=== PATIENT | female | born 1985 | race Caucasian/White ===

== ENCOUNTER 2017-03-04 15:44 | Emergency (ER) | payer SELFPAY ==
[2017-03-04 16:52] VITALS: BP 114/70
[2017-03-04 17:28] LABS: Basophils % (Auto) 0.1 % (0.0-1.8); Hematocrit 41.2 % (30.3-42.9); Hemoglobin 13.9 gm/dl (10.1-14.3); Mean Corpuscular HGB Conc 34 % (30-34); Mean Corpuscular Hemoglobin 30 pg (28-32); Mean Corpuscular Volume 90 fl (79-97); Platelet Count 266 K/mm3 (140-440); Red Cell Distribution Width 13.7 % (13.2-15.2); White Blood Count 15.2 K/mm3 (4.5-11.0)
[2017-03-04 17:41] LABS: Alanine Aminotransferase 14 units/L (7-56); Albumin 4.6 g/dL (3.9-5); Albumin/Globulin Ratio 1.7 %; Alkaline Phosphatase 60 units/L (35-129); Anion Gap 20 mmol/L; Blood Urea Nitrogen 9 mg/dL (7-17); Calcium 9.2 mg/dL (8.4-10.2); Carbon Dioxide 19 mmol/L (22-30); Chloride 99.2 mmol/L (98-107); Glucose 108 mg/dL (65-100); Lipase 29 units/L (13-60); Potassium 3.6 mmol/L (3.6-5.0); Sodium 135 mmol/L (137-145); Total Protein 7.3 g/dL (6.3-8.2)
[2017-03-04 17:42] LABS: Bilirubin,Urine NEG (Negative); Blood,Urine NEG (Negative); Ketones,Urine 20 mg/dL (Negative); Leukocyte Esterase,Urine NEG (Negative); Mucus,Urine FEW /HPF; Nitrite,Urine NEG (Negative); Urobilinogen,Urine < 2.0 mg/dL (<2.0); WBC,Urine < 1.0 /HPF (0.0-6.0)
--- NOTE | 2017-03-06 17:06 | ED Elopement Review ---
ED Pt Elopement review - Results review Lab results: Laboratory Tests 03/04/17 03/04/17 03/04/17 16:58 16:58 16:58 WBC 15.2 H RBC 4.60 Hgb 13.9 Hct 41.2 MCV 90 MCH 30 MCHC 34 RDW 13.7 Plt Count 266 Lymph % (Auto) 5.9 L [place] % (Auto) 4.2 Eos % (Auto) 0.0 Baso % (Auto) 0.1 Lymph # 0.9 L [place] # 0.6 Eos # 0.0 Baso # 0.0 Seg Neutrophils % 89.8 H Seg Neutrophils # 13.6 H Sodium 135 L Potassium 3.6 Chloride 99.2 Carbon Dioxide 19 L Anion Gap 20 BUN 9 Creatinine 0.4 L Estimated GFR > 60 BUN/Creatinine Ratio 22.50 Glucose 108 H Calcium 9.2 Total Bilirubin 1.60 H AST 20 ALT 14 Alkaline Phosphatase 60 Total Protein 7.3 Albumin 4.6 Albumin/Globulin Ratio 1.7 Lipase 29 HCG, Qual Negative Urine Color Urine Turbidity Urine pH Ur Specific [place] Urine Protein Urine Glucose (UA) Urine Ketones Urine Blood Urine Nitrite Urine Bilirubin Urine Urobilinogen Ur Leukocyte Esterase Urine WBC (Auto) Urine RBC (Auto) U Epithel Cells (Auto) Urine Mucus 03/04/17 Unknown WBC RBC Hgb Hct MCV MCH MCHC RDW Plt Count Lymph % (Auto) [place] % (Auto) Eos % (Auto) Baso % (Auto) Lymph # [place] # Eos # Baso # Seg Neutrophils % Seg Neutrophils # Sodium Potassium Chloride Carbon Dioxide Anion Gap BUN Creatinine Estimated GFR BUN/Creatinine Ratio Glucose Calcium Total Bilirubin AST ALT Alkaline Phosphatase Total Protein Albumin Albumin/Globulin Ratio Lipase HCG, Qual Urine Color Soraya Urine Turbidity Clear Urine pH 9.0 H Ur Specific [place] 1.021 Urine Protein 100 mg/dl Urine Glucose (UA) Neg Urine Ketones 20 Urine Blood Neg Urine Nitrite Neg Urine Bilirubin Neg Urine Urobilinogen < 2.0 Ur Leukocyte Esterase Neg Urine WBC (Auto) < 1.0 Urine RBC (Auto) 6.0 U Epithel Cells (Auto) 2.0 Urine Mucus Few - Call Back decision Pt Call Back Decision: No action required
== END 2017-03-04 21:08 | disposition left against medical advice (07) ==
LOC: ED 15:44
DX: R10.9 Unspecified abdominal pain (principal); Z53.21 Procedure and treatment not carried out due to patient leaving prior to being seen by health care provider
CPT/HCPCS: 36415; 80053; 81001; 83690; 84703; 85025